=== PATIENT | female | born 1945 | race American Indian/Alaskan Native ===

== ENCOUNTER 2017-03-20 20:15 | Emergency (ER) | payer MEDICARE, OTHER ==
[~2017-03-20 20:15] MED LIST: (NONE)1 CA1 PO; ALBUTEROL17 GM INH; ALTOPREV40 MG PO; AMITRIPTYLINE H50 MG PO; AMLODIPINE BESY10 MG PO; BUPROPION HCL150 M1 PO; CARVEDILOL12.5 MG PO; CELEXA PO; CHEWABLE ASPIRI81 MG PO; CYANOCOBALAM1000 MCG PO; DESYREL150 M1 PO; DIAZEPAM PO; DYAZIDE 37.5/251 CAP PO; EFFEXOR XR75 MG PO; EFFEXOR75 MG PO; ETODOLAC500 MG PO; FUROSEMIDE40 MG PO; GABAPENTIN300 MG PO; HYDRALAZINE HCL10 MG PO; HYDROCHLOROTHIA25 MG PO; IMDUR-ER30 M1 PO; K-DUR10 MEQ PO; K-DUR20 ME2 PO; KLONOPIN0.5 MG PO; LASIX20 MG PO; LEVAQUIN750 M1 PO; LEVOFLOXACIN500 MG PO; LEXAPRO20 MG PO; LIPITOR40 MG PO; LOPID600 MG PO; LORAZEPAM1 MG PO; METOPROLOL TART25 MG PO; MEVACOR PO; NEURONTIN100 MG PO; NEURONTIN300 MG PO; NORVASC PO; NORVASC10 MG PO; OMEGA-31000 M1 PO; OMEPRAZOLE20 M2 PO; OXYCODONE HCL5 M1 PO; PERCOCET5/325 PO; PREDNISOLONE5 MG PO; PREDNISONE PO; PREVACID15 M1 PO; PRILOSEC20 M1 PO; PRINIVIL5 MG PO; PROAIR HFA8.5 GM IH; PROAIR HFA8.5 GM INH; ROBAXIN500 MG PO; ROXICET 5-325 T1 TAB PO; SYMBICORT INH; TRIAMTERENE-HC1 EAC1 PO; TRIAMTERENE-HCT1 TA6 PO; TRIAMTERENE-HCT1 TA8 PO; WELLBUTRIN SR150 MG PO; XANAX0.5 MG PO
== END 2017-03-20 23:55 | disposition home or self-care (01) ==
LOC: CED 20:15
DX: F43.23 Adjustment disorder with mixed anxiety and depressed mood (principal); I10 Essential (primary) hypertension; I25.2 Old myocardial infarction; Z79.899 Other long term (current) drug therapy; Z88.5 Allergy status to narcotic agent
CPT/HCPCS: 99284